=== PATIENT | female | born 1975 | race Caucasian/White ===

== ENCOUNTER → 2018-03-25 | Outpatient (CLI) | payer OTHER | END | disposition home or self-care (01) | LOC: MAMO-SONO 10:58 | DX: E04.1 Nontoxic single thyroid nodule (principal); R10.2 Pelvic and perineal pain; N83.9 Noninflammatory disorder of ovary, fallopian tube and broad ligament, unspecified; R10.9 Unspecified abdominal pain; R10.33 Periumbilical pain ==

== ENCOUNTER 2018-11-24 12:21 | Emergency (ER) | payer OTHER ==
[~2018-11-24] VITALS: Ht 167.6 cm; Wt 77.1 kg
[2018-11-24] MEDS ORDERED: TIROSINT25 MCG (12:27)
[2018-11-24] MEDS ORDERED: HYDROCHLOROTH12.5 MG (12:27)
[2018-11-24] MEDS ORDERED: ALTACE10 MG PO (12:27)
[2018-11-24] MEDS ORDERED: LIPITOR20 MG (12:27)
[2018-11-24] MEDS ORDERED: GLUCOPHAGE XR750 MG PO (12:27)
[2018-11-24] MEDS ORDERED: ZOLOFT50 MG (12:28)
[2018-11-24] MEDS ORDERED: ATIVAN1 MG (12:28)
== END 2018-11-24 14:38 | disposition home or self-care (01) ==
LOC: ER 12:21
DX: B34.9 Viral infection, unspecified (principal)

== ENCOUNTER 2023-09-02 07:49 | Emergency (ER) | payer OTHER ==
[~2023-09-02] VITALS: Ht 167.6 cm; Wt 83.5 kg
[~2023-09-02 07:49] MED LIST: ALTACE10 MG PO; ATIVAN1 MG; GLUCOPHAGE XR750 MG PO; HYDROCHLOROTH12.5 MG; LIPITOR20 MG; TIROSINT25 MCG; ZOLOFT50 MG
[2023-09-02] MEDS ORDERED: TOPROL XL25 M1 PO (08:12)
[2023-09-02 09:32] LABS: HEMATOCRIT 41.7 % (36.0-45.00); HEMOGLOBIN 13.8 g/dL (12.0-15.00); MEAN CELL VOLUME 89.9 fL (80.00-100.00); MEAN CORPUSCULAR HEMOGLOBIN 29.7 pg (27.00-32.0); PLATELET COUNT 233 K/uL (150-450); RED BLOOD COUNT 4.64 M/uL (4.00-6.00); RED CELL DISTRIBUTION WIDTH 13.1 % (11.5-14.5)
[2023-09-02 09:51] LABS: CREATININE SERUM 0.58 mg/dL (0.55-1.02); GFR 110.96; POTASSIUM 4.26 mEq/L (3.5-5.1)
[2023-09-02 09:54] LABS: URINE APPEARANCE Clear; URINE BILIRRUBIN Negative (NEGATIVE); URINE BLOOD Negative; URINE COLOR Yellow; URINE GLUCOSE Negative (NEGATIVE); URINE LEUKOCYTE Negative; URINE NITRATE Negative; URINE PROTEIN Negative (NEGATIVE)
[2023-09-02 10:01] LABS: URINE BACTERIA 1235.9 uL (0.0-1933); URINE EPITHELIAL CELLS 43.1 uL (0.0-38.8); URINE RBC 5.4 uL (0.0-20.8); URINE WBC 11.2 uL (0.0-23.2)
== END 2023-09-02 16:42 | disposition home or self-care (01) ==
LOC: ER 07:50
PROVIDERS: Emergency Medicine
DX: I88.0 Nonspecific mesenteric lymphadenitis (principal); K29.70 Gastritis, unspecified, without bleeding; E11.9 Type 2 diabetes mellitus without complications; Z79.84 Long term (current) use of oral hypoglycemic drugs; I10 Essential (primary) hypertension; Z88.6 Allergy status to analgesic agent; Z88.2 Allergy status to sulfonamides; Z88.8 Allergy status to other drugs, medicaments and biological substances; M43.07 Spondylolysis, lumbosacral region